=== PATIENT | male | born 1970 | race Two or more races ===

== ENCOUNTER 2018-11-26 11:45 | Outpatient (CLI) | payer OTHER ==
[~2018-11-26 11:45] MED LIST: AMBIEN10 MG PO; FENOFIBRATE40 MG PO; FOLIC ACID1 MG PO; GLUMETZA1000 MG PO; HYZAAR 100/25 T1 TAB PO; POLY119PG PO; ULTRACET PO; ZOCOR20 MG PO; [UNRECOGNIZED DRUG - OTHER] PO
== END 2018-11-26 11:47 | disposition home or self-care (01) ==
LOC: MAMO-SONO 11:45
DX: N60.11 Diffuse cystic mastopathy of right breast (principal); N60.12 Diffuse cystic mastopathy of left breast; Z80.3 Family history of malignant neoplasm of breast; N62 Hypertrophy of breast

== ENCOUNTER → 2019-04-06 06:00 | Outpatient (CLI) | payer OTHER ==
[~2019-04-06 06:00] MED LIST changes: +CLONAZEPAM0.125 MG PO; +ENALAPRIL MALEAT5 MG PO; +INTESTINEX680 M1 PO; +SINGULAIR10 MG PO; +[UNRECOGNIZED DRUG - OTHER]
== END | disposition home or self-care (01) ==
LOC: LAB 06:00 → ADM 07:30 → CIR.AMB 04-10 07:30 → EDSTATUS 04-10 07:30 → CIR.AMB 04-10 13:00
DX: N62 Hypertrophy of breast (principal)

== ENCOUNTER 2020-09-02 07:25 | Day surgery (SDC) | payer OTHER | END 2020-09-02 22:11 | disposition home or self-care (01) | LOC: CIR.AMB 07:25 | PROVIDERS: ATTEND Plastic Surgery | DX: N62 Hypertrophy of breast (principal); Z20.828 Contact with and (suspected) exposure to other viral communicable diseases ==

== ENCOUNTER → 2020-09-02 | Outpatient (CLI) | payer OTHER ==
[~2020-09-02] MED LIST changes: +CLONA PO; +FORTAMET500 MG PO; +GLIM PO; +PROCARD PO; +ROSUVAST PO
== END | disposition home or self-care (01) ==
LOC: MAMO-SONO 10:05
PROVIDERS: ATTEND Plastic Surgery
DX: N62 Hypertrophy of breast (principal); N64.59 Other signs and symptoms in breast

== ENCOUNTER 2020-12-06 10:50 | Outpatient (CLI) | payer OTHER | END 2020-12-06 11:02 | disposition home or self-care (01) | LOC: RAD 10:50 | PROVIDERS: ATTEND General Practice | DX: M17.32 Unilateral post-traumatic osteoarthritis, left knee (principal) ==

== ENCOUNTER 2022-03-11 20:21 | Emergency (ER) | payer OTHER ==
[~2022-03-11] VITALS: Ht 182.9 cm; Wt 117.9 kg
[2022-03-11] MEDS ORDERED: NIFEDIPINE20 MG PO (20:47)
[2022-03-11] MEDS ORDERED: GLYXAMBI 25 MG1 EACH PO (20:47)
[2022-03-11] MEDS ORDERED: ROSUVASTATIN CA20 MG PO (20:48)
[2022-03-11] MEDS ORDERED: GLIMEPIRIDE4 M1 PO (20:48)
== END 2022-03-12 | disposition home or self-care (01) ==
LOC: ER 20:21
DX: S29.9XXA Unspecified injury of thorax, initial encounter (principal); S69.91XA Unspecified injury of right wrist, hand and finger(s), initial encounter; W18.30XA Fall on same level, unspecified, initial encounter; Y93.9 Activity, unspecified; Y92.019 Unspecified place in single-family (private) house as the place of occurrence of the external cause; Z88.0 Allergy status to penicillin